=== PATIENT | female | born 1985 | race Caucasian/White ===

== ENCOUNTER → 2017-07-27 | Outpatient (CLI) | payer BC ==
[~2017-07-27] MED LIST: IOPAMIDOL 370 MG/ML 200 ML INFUS..BTL INJ ONE; SODIUM CHLORIDE 0.9% 50ML 50 ML ONE
--- NOTE | 2017-07-27 09:41 | Diagnostic Imaging Report ---
Examination: CT Face with Contrast History:Left facial swelling. Comparison studies: None Technique: Axial images were obtained through the maxillofacial region. Coronal and sagittal reconstructions obtained from the axial data. Intravenous contrast: 100 mL Isovue-370. Findings: Soft tissues: In the anterior left nasal cavity, there is a 1.8 x 1.1 x 1.3 cm (superoinferior x anteroposterior x transverse dimensions) homogeneously enhancing soft tissue lesion which mildly obstructs the nasal passage. There is no associated erosion of the left frontal process of the maxilla. Bones: No fractures or bony abnormalities. Orbits: Globes: Intact Extra or intraconal abnormalities: None. Paranasal sinuses: Mild inflammatory mucosal thickening of the bilateral ethmoid air cells. Tiny retention cyst along the alveolar recess of the right maxillary sinus. Nasal cavity: Mild deviation nasal septum to the right. Mildly narrow bilateral nasal cavities. IMPRESSION: Soft tissue mass in the left anterior nasal cavity, which could represent either a benign mixed tumor, solitary nasal polyp or nerve sheath tumor. Excisional biopsy is recommended. Signed by: Dr. Kayla Vogel M.D. on 07/27/2017 9:38 AM
== END ==
LOC: CT 08:07
PROVIDERS: ATTEND Family Medicine
DX: R22.0 Localized swelling, mass and lump, head (principal)
CPT/HCPCS: 70487; 81025; Q9967

== ENCOUNTER → 2020-06-04 | Day surgery (SDC) | payer BC ==
[~2020-06-04] MED LIST changes: +BUPIVACAINE HCL 0.5% 10ML MPF VIAL INJ ONE; +CEFAZOLIN SOD 1 GM/NS 50ML 100 ML IV ONE; +DEXAMETHASONE SOD PHOS INJ 4 MG/ML VIAL ONE; +FENTANYL CITRATE/PF 100MCG/2 ML INJ ONE; -IOPAMIDOL 370 MG/ML 200 ML INFUS..BTL INJ ONE; +KETOROLAC TROMETHAMINE 30 MG/ML VIAL ONE; +LIDOCAINE HCL 2% LOCAL INJ 5 ML SDV VIAL INJ ONE; +MIDAZOLAM HCL 2 MG/2 ML VIAL ONE; +NEOSTIGMINE 1 MG/ML 10ML VIAL ONE; +ONDANSETRON HCL INJ 2MG/ML 2ML 2 MG/ML VIAL ONE; +PROPOFOL IV EMULSION 10 MG/ML 20 ML VIAL ONE; +SEVOFLURANE INHAL SOLN 250 ML PEN BTL ONE; -SODIUM CHLORIDE 0.9% 50ML 50 ML ONE
[2020-06-04 09:10] VITALS: BP 109/61
== END | disposition home or self-care (01) ==
LOC: OR 05:32
PROVIDERS: ATTEND Podiatrist Foot Surgery
DX: M72.2 Plantar fascial fibromatosis (principal); M77.32 Calcaneal spur, left foot; Z01.812 Encounter for preprocedural laboratory examination; Z20.828 Contact with and (suspected) exposure to other viral communicable diseases
CPT/HCPCS: 29893; 81025; J0690; J1100; J1885; J2001; J2250; J2405; J2704; J2710; J3010; Q4100; U0002

== ENCOUNTER → 2020-12-16 | Outpatient (CLI) | payer BC | LOC: CT 15:40 | PROVIDERS: ATTEND Family Medicine | DX: R51.9 Headache, unspecified (principal) | CPT/HCPCS: 70450; 81025 ==